=== PATIENT | female | born 1985 | race African-American/Black ===

== ENCOUNTER 2019-11-16 14:40 | Emergency (ER) | payer OTHER ==
[2019-11-16 14:58] VITALS: BMI 48.6
--- OUTSIDE RECORDS SUMMARY | 2019-11-16 15:01 | XMS ---
:1985 Author Organization [facility] Support Name Relationship Address [place] [address] [address] [place] [address] Re-disclosure Warning The records that you are about to access may contain information from federally- assisted alcohol or drug abuse programs. If such information is present, then the following federally mandated warning applies: This information has been disclosed to you from records protected by federal confidentiality rules (42 CFR part 2). The federal rules prohibit you from making any further disclosure of this information unless further disclosure is expressly permitted by the written consent of the person to whom it pertains or as otherwise permitted by 42 CFR part 2. A general authorization for the release of medical or other information is NOT sufficient for this purpose. The Federal rules restrict any use of the information to criminally investigate or prosecute any alcohol or drug abuse patient.The records that you are about to access may contain highly sensitive health information, the redisclosure of which is protected by Article 27-F of the [facility] Public Health law. If you continue you may haveaccess to information: Regarding HIV / AIDS; Provided by facilities licensed or operated by the [facility] Office of Mental Health; or Provided by the [facility] Office for People With Developmental Disabilities. If such information is present, then the following [facility] mandated warning applies: This information has been disclosed to you from confidential records which are protected by state law. State law prohibits you from making any further disclosure of this information without the specific written consent of the person to whom it pertains, or as otherwise permitted by law. Any unauthorized further disclosure in violation of state law may result in a fine or senior care sentence or both. A general authorization for the release of medical or other information is NOT sufficient authorization for further disclosure. Insurance Providers Payer name Policy type Policy ID Covered Covered republican's Policy P afua / Coverage republican ID relationship to [employer] type [employer] [employer] [place] [id number] SP [id number] HMO Problems, Conditions, and Diagnoses Code Display Name Description Problem Type Effective Dates Data Source(s) Complaint 10/03/2018 04:00:00 NETSM ART (The AM EDT Guidance Becky mattson [facility]) Complaint 10/03/2018 04:00:00 NETSM ART [facility] Complaint 10/03/2018 04:00:00 NETSM ART [facility]
--- NOTE | 2019-11-16 15:42 | PDOC ---
History of Present Illness - General Chief Complaint: Chest Pain Stated Complaint: CHEST PAIN Time Seen by Provider: 11/16/19 15:13 History Source: Patient Exam Limitations: No Limitations - History of Present Illness Initial Comments: 11/16/19 18:41 34-year-old female presents to ED with complaints of left-sided chest soreness worsened with movement and deep breathing for the past 2 days. Patient states took Tylenol with no improvement and decided come to the ER. 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 Patient denies smoking, exogenous estrogen usage, recent travel, leg pain, shortness of breath, rash, palpitations, or thyroid disorder. Patient does state has history of fibromyalgia and asthma. Presenting Symptoms: Chest Pain Timing/Duration: reports: intermittent Severity/Quality: reports: mild, moderate, aching Location: reports: substernal Chest Pain Radiation: reports: arms ( Left armpit and shoulder) Activities at Onset: reports: exertion Prior Chest Pain/Cardiac Workup: reports: No prior chest pain Modifying Factors: improves with: exercise Nitro Today/Relief: Yes: no nitro taken today Aspirin Received prior to arrival (Core Measure): Yes: no aspirin today Associated Symptoms: Yes: Chest Pain/pressure Past History - Travel History Traveled outside of the country in the last 30 days: No Close contact w/someone who was outside of country & ill: No - Medical History Allergies/Adverse Reactions: Allergies Allergy/AdvReac Type Severity Reaction Status Date / Time hydroxychloroquine Allergy Verified 11/16/19 14:54 [From Plaquenil] Penicillins Allergy Verified 11/16/19 14:53 Asthma: Yes COPD: No Other medical history: FIBROMYALGIA - Reproductive History Is Patient Now?: No - Psycho-Social/Smoking History Patient Lives Alone: No Lives with/in: spouse/SO Smoking History: Never smoked Review of Systems - Review of Systems Able to Perform ROS?: Yes Constitutional: No: Symptoms Reported HEENTM: No: Symptoms Reported Respiratory: No: Symptoms reported Cardiac (ROS): Yes: Chest Pain ABD/GI: No: Symptoms Reported : No: Symptoms Reported Musculoskeletal: Yes: Symptoms Reported, Joint Pain, Muscle Pain Integumentary: No: Symptoms Reported Neurological: No: Symptoms reported Endocrine: No: Symptoms Reported Hematologic/Lymphatic: No: Symptoms Reported *Physical Exam - Vital Signs Last Vital Signs Temp Pulse Resp BP Pulse Ox 98 F 65 18 125/71 99 11/16/19 14:45 11/16/19 14:45 11/16/19 14:45 11/16/19 14:45 11/16/19 14:45 - Physical Exam General Appearance: Yes: Nourished, Appropriately Dressed. No: Apparent Distress HEENT: negative: Pale Conjunctivae Neck: positive: Normal Thyroid, Supple Respiratory/Chest: positive: Chest Tender (Left mid axillary line into the left axillary region), Lungs Clear, Normal Breath Sounds. negative: Respiratory Distress Cardiovascular: positive: Regular Rhythm, Regular Rate. negative: Murmur Gastrointestinal/Abdominal: positive: Soft. negative: Tenderness Extremity: positive: Normal Inspection Integumentary: positive: Normal Color, Warm, Moist Neurologic: positive: Motor Strength 5/5 (Ambulatory) ED Treatment Course - LABORATORY CBC & Chemistry Diagram: 11/16/19 15:33 11/16/19 15:33 - ADDITIONAL ORDERS Additional order review: Laboratory Results 11/16/19 11/16/19 11/16/19 15:33 15:33 15:33 D-Dimer 557 H Sodium 138 Potassium 4.3 Chloride 106 Carbon Dioxide 27 Anion Gap 4 L BUN 8.8 Creatinine 0.8 Est GFR (CKD-EPI)AfAm 109.93 Est GFR (CKD-EPI)NonAf 94.85 Random Glucose 87 Calcium 8.7 Total Bilirubin 0.4 AST 27 ALT 17 Alkaline Phosphatase 66 Creatine Kinase 307 H Creatine Kinase Index 0.8 CK-MB (CK-2) 2.7 Troponin I < 0.02 Total Protein 9.1 H Albumin 3.1 L Serum , Qual Negative 11/16/19 15:33 RBC 3.68 MCV 84.8 MCHC 32.8 RDW 15.9 H MPV 8.9 Neutrophils % 64.4 Lymphocytes % 27.2 Monocytes % 7.5 Eosinophils % 0.0 Basophils % 0.9 - RADIOLOGY Radiology Studies Ordered: Category Date Time Status CHEST CTA [CT] Stat CT Scan 11/16/19 16:33 Taken - Medications Given in the ED: ED Medications Discontinued Medications Generic Name Dose Route Start Last Admin Trade Name Freq PRN Reason Stop Dose Admin Sodium Chloride 1,000 mls @ 1,000 mls/hr 11/16/19 16:33 11/16/19 16:59 Normal Saline - IV 11/16/19 17:32 1,000 mls/hr ASDIR STA Administration Medical Decision Making - Medical Decision Making 11/16/19 18:45 Chief complaint: Patient with chest pain worsened with movement and deep breathing for the past 2 days. Patient took Tylenol with no relief. Patient with history of fibromyalgia. Patient sent here due to elevated d-dimer of 560 exam: Reproducible left-sided chest pain, no rash. Lungs clear on exam. Plan: Labs, EKG d-dimer serum IV. 11/16/19 18:47 Laboratory Tests 11/16/19 11/16/19 11/16/19 15:33 15:33 15:33 WBC 6.5 Hgb 10.2 L MCV 84.8 RDW 15.9 H D-Dimer 557 H Sodium Potassium Chloride Carbon Dioxide Anion Gap BUN Creatinine Est GFR (CKD-EPI)AfAm Est GFR (CKD-EPI)NonAf Random Glucose Calcium AST ALT Alkaline Phosphatase Creatine Kinase Creatine Kinase Index CK-MB (CK-2) Troponin I Total Protein Albumin Serum , Qual Negative 11/16/19 15:33 WBC Hgb MCV RDW D-Dimer Sodium 138 Potassium 4.3 Chloride 106 Carbon Dioxide 27 Anion Gap 4 L BUN 8.8 Creatinine 0.8 Est GFR (CKD-EPI)AfAm 109.93 Est GFR (CKD-EPI)NonAf 94.85 Random Glucose 87 Calcium 8.7 AST 27 ALT 17 Alkaline Phosphatase 66 Creatine Kinase 307 H Creatine Kinase Index 0.8 CK-MB (CK-2) 2.7 Troponin I < 0.02 Total Protein 9.1 H Albumin 3.1 L Serum , Qual 11/16/19 18:49 CT negative for acute findings including pulmonary embolism. Discharge - Discharge Information Problems reviewed: Yes Clinical Impression/Diagnosis: Chest pain, muscular Condition: Improved Disposition: HOME - Follow up/Referral Referrals: Pepper Parr [Primary Care Provider] - - Patient Discharge Instructions Patient Printed Discharge Instructions: DI for Musculoskeletal Pain Additional Instructions: At this time your labs were normal including your CAT scan. Please avoid movements that trigger discomfort and take Motrin 600 mg every 8 hours for discomfort - Post Discharge Activity
[2019-11-16 15:46] LABS: BASO % 0.9 % (0-2.0); HEMATOCRIT 31.2 % (32.4-45.2); HEMOGLOBIN 10.2 GM/dL (10.7-15.3); LYMPH % 27.2 % (8-40); MCH 27.8 pg (25.7-33.7); MCHC 32.8 g/dl (32.0-36.0); MEAN CELL VOLUME 84.8 fl (80-96); MEAN PLT VOLUME 8.9 fl (7.5-11.1); MONO % 7.5 % (3.8-10.2); NEUT % 64.4 % (42.8-82.8); PLATELET COUNT 246 K/MM3 (134-434); RBC 3.68 M/mm3 (3.60-5.2); RDW 15.9 % (11.6-15.6); WHITE BLOOD COUNT 6.5 K/mm3 (4.0-10.0)
[2019-11-16 16:09] LABS: ALBUMIN 3.1 g/dl (3.4-5.0); ALK PHOS 66 U/L (45-117); ANION GAP 4 MMOL/L (8-16); BILIRUBIN,TOTAL 0.4 mg/dL (0.2-1); BLOOD UREA NITROGEN 8.8 mg/dL (7-18); CALCIUM 8.7 mg/dL (8.5-10.1); CHLORIDE 106 mmol/L (98-107); CO2 27 mmol/L (21-32); CREATININE 0.8 mg/dL (0.55-1.3); GLUCOSE,RANDOM 87 mg/dL (74-106); POTASSIUM 4.3 mmol/L (3.5-5.1); SGOT/AST 27 U/L (15-37); SGPT/ALT 17 U/L (13-61); SODIUM 138 mmol/L (136-145); TOT PROT 9.1 g/dl (6.4-8.2)
[2019-11-16] MEDS ORDERED: SODIUM CHLORIDE 1,000 ML IV STA (16:33)
[2019-11-16] MEDS ORDERED: KETOROLAC TROMETHAMINE 30 MG/1 ML VIAL IVPUSH ONE (18:49)
[2019-11-16] MEDS ORDERED: KETOROLAC TROMETHAMINE 60 MG/2 ML VIAL IM ONE (18:57)
[2019-11-16] MEDS ORDERED: KETOROLAC TROMETHAMINE 30 MG/1 ML VIAL ONE (18:58)
[2019-11-16 19:11] VITALS: BP 127/65; PULSE 69; TEMP 98.9
--- NOTE | 2019-11-16 21:43 | EKG ---
Test Reason : Blood Pressure : / mmHG Vent. Rate : 056 BPM Atrial Rate : 056 BPM P-R Int : 190 ms QRS Dur : 086 ms QT Int : 426 ms P-R-T Axes : 031 043 028 degrees QTc Int : 411 ms SINUS BRADYCARDIA OTHERWISE NORMAL ECG NO PREVIOUS ECGS AVAILABLE Confirmed by Mi Gordon ([id number]) on 11/16/2019 9:42:47 PM Referred By: Confirmed By:Mi Gordon
== END 2019-11-16 19:11 | disposition home or self-care (01) ==
LOC: JER 14:40
PROC: 3E033NZ Introduction of Analgesics, Hypnotics, Sedatives into Peripheral Vein, Percutaneous Approach (ICD-10-PCS; principal; 2019-11-16)
PROC: 3E0233Z Introduction of Anti-inflammatory into Muscle, Percutaneous Approach (ICD-10-PCS; 2019-11-16)
PROC: 3E0337Z Introduction of Electrolytic and Water Balance Substance into Peripheral Vein, Percutaneous Approach (ICD-10-PCS; 2019-11-16)
DX: R07.9 Chest pain, unspecified (principal)
CPT/HCPCS: 36415; 71275-TC; 80053; 82550; 82553; 84484; 84703; 85025; 85379; 93005; 93010; 99285-25; Q9967